=== PATIENT | female | born 1955 | race Two or more races ===

== ENCOUNTER 2025-01-14 11:26 | Emergency (ER) | payer BC, OTHER ==
[~2025-01-14] VITALS: Ht 162.6 cm; Wt 72.7 kg
[2025-01-14 11:27] VITALS: TEMP 98.1
[2025-01-14 11:30] VITALS: PULSE 93; RESP 13; O2SAT 98
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
[2025-01-14 13:00] VITALS: BP 145/82; PULSE 88; RESP 16; O2SAT 97
[2025-01-14] MEDS: LORazepam 0.5 MG TAB PO ONE (13:54)
== END 2025-01-14 15:31 | disposition home or self-care (01) ==
LOC: ER 11:26 → EDBD 11:26 → ER 15:31
DX: F41.9 Anxiety disorder, unspecified (principal); Z63.4 Disappearance and death of family member; Z79.899 Other long term (current) drug therapy